=== PATIENT | male | born 1955 | race Caucasian/White ===

== ENCOUNTER 2016-11-25 07:52 | Day surgery (SDC) | payer BC ==
[2016-11-24 11:32] VITALS: Ht 172.7 cm; Wt 90.0 kg
[~2016-11-25] VITALS: Ht 172.7 cm; Wt 90.0 kg
[~2016-11-25 07:52] MED LIST: CEFAZOLIN 2 GM/50 ML (PMX) 50 ML IVPB ONE; SOD CHLORIDE 0.9% 1,000 ML IV SCH
[2016-11-25] MEDS ORDERED: ASPI-664 PO (08:29)
[2016-11-25] MEDS ORDERED: LISI10TA2 PO (08:29)
[2016-11-25] MEDS ORDERED: CHOL100062 PO (08:30)
[2016-11-25] MEDS ORDERED: ATOR40TA68 PO (08:30)
[2016-11-25] MEDS ORDERED: FINA5TAB4 PO (08:30)
[2016-11-25] MEDS ORDERED: OMEG1CAP31 PO (08:31)
[2016-11-25] MEDS ORDERED: LORA1TAB54 PO (08:32)
--- NOTE | 2016-11-25 08:38 | RADRPT ---
PROCEDURE: XR Chest. CLINICAL INDICATION: Preoperative . TECHNIQUE: Single frontal chest x-ray. COMPARISON: None. FINDINGS: The lungs are clear of acute infiltrates, edema, effusions, or masses.. The cardiomediastinal silho uette is unremarkable. The osseous structures are intact. IMPRESSION: No acute cardiopulmonary disease. RPTAT: GG .George Kaur MD, MD Date Time Electronically viewed and signed by .George Kaur MD, MD on 11/25/2016 08:38 .L/
[2016-11-25 08:50] VITALS: BP 111/70; PULSE 84; RESP 16
[2016-11-25 09:12] LABS: BASOPHILS % 0.4 % (0.0-2.0); EOSINOPHILS # 0.3 10^3/ul (0.0-0.5); EOSINOPHILS % 3.5 % (0.0-7.0); HEMATOCRIT 47.4 % (42.0-52.0); HEMOGLOBIN 15.5 g/dl (14.0-18.0); LYMPHOCYTES # 2.4 10^3/ul (0.8-2.9); LYMPHOCYTES % 29.4 % (15.0-51.0); MEAN CORPUSCULAR HEMOGLOBIN 28.9 pg (29.0-33.0); MEAN CORPUSCULAR HGB CONC 32.7 g/dl (32.0-37.0); MEAN CORPUSCULAR VOLUME 88.3 fl (82.0-101.0); MEAN PLATELET VOLUME 8.4 fl (7.4-10.4); MONOCYTE # 0.9 10^3/ul (0.3-0.9); MONOCYTES % 11.2 % (0.0-11.0); NEUTROPHILS % 54.8 % (39.0-77.0); PLATELET COUNT 295 10^3/UL (140-415); RED BLOOD COUNT 5.37 10^6/ul (4.70-6.10); RED CELL DISTRIBUTION WIDTH 13.7 % (11.5-14.5); WHITE BLOOD COUNT 8.1 10^3/ul (4.8-10.8)
[2016-11-25 09:32] LABS: INR 0.96; PROTIME 12.8 Sec (12.2-14.2)
[2016-11-25 09:33] LABS: PARTIAL THROMBOPLASTIN TIME 30.1 Sec (25.0-35.0)
[2016-11-25 09:39] LABS: ALBUMIN 4.5 g/dl (3.3-4.9); ALBUMIN/GLOBULIN RATIO 1.36; BILIRUBIN,INDIRECT 0.6 mg/dl (0-1.1); BILIRUBIN,TOTAL 0.6 mg/dl (0.2-1.3); TOTAL PROTEIN 7.8 g/dl (6.1-8.1)
[2016-11-25 09:46] LABS: CALCIUM 9.9 mg/dl (8.4-10.2); CREATININE 1.07 mg/dl (0.61-1.24)
--- NOTE | 2016-11-25 19:36 | RADRPT ---
Vent Rate: 77 bpm RR Interval: 0 msec WA Interval: 148 msec QRS Duration: 132 msec QT Interval: 388 msec QTC Interval: 439 msec P-R-T [place]: 56 - -82 - 40 degrees Normal sinus rhythm Right bundle branch block Left anterior fascicular block Bifascicular block Abnormal ECG Electronically Signed By: Russell Salvador [id number]
== END 2016-11-25 11:28 | disposition home or self-care (01) ==
LOC: SDS 07:52
PROVIDERS: ATTEND Surgery Surgical Oncology
DX: K80.20 Calculus of gallbladder without cholecystitis without obstruction (principal); Z53.9 Procedure and treatment not carried out, unspecified reason
CPT/HCPCS: 71010; 80053; 85025; 85610; 85730; 93005